=== PATIENT | male | born 1975 | race Two or more races ===

== ENCOUNTER 2024-05-16 01:31 | Inpatient (IN) | payer BC, OTHER ==
[~2024-05-16] VITALS: Ht 172.7 cm; Wt 105.7 kg
[2024-05-16] MEDS ORDERED: Z GUARD REMEDY 4 OZ OINT TP PRN (03:30)
[2024-05-16] MEDS ORDERED: MAGNESIUM HYDROXIDE 30 ML UDC PO PRN (03:30)
[2024-05-16] MEDS ORDERED: MAG HYDROX/AL HYDROX/SIMETH 30 ML UDC PO PRN (03:30)
[2024-05-16] MEDS ORDERED: ACETAMINOPHEN 325 MG TABLET PO PRN (03:30)
[2024-05-16] MEDS ORDERED: LORAZEPAM INJ 2 MG/ML VIAL IV PRN ×2 (03:30→18:00)
[2024-05-16] MEDS ORDERED: ONDANSETRON HCL/PF 4 MG/2 ML VIAL IVP PRN (03:30)
[2024-05-16 04:00] VITALS: BP 129/82; TEMP 97.9
[2024-05-16] MEDS: ENOXAPARIN SODIUM 30 MG/0.3 ML DISP.SYRIN SQ SCH (04:43)
[2024-05-16 07:10] LABS: BASOPHILS % (AUTO) 0.4 % (0.0-2.0); EOSINOPHILS % (AUTO) 0.1 % (0.0-6.0); HEMATOCRIT 47 % (39-51); HEMOGLOBIN 16.1 g/dL (13.5-17.5); LYMPHOCYTES # (AUTO) 1.8 K/uL (0.8-4.8); LYMPHOCYTES % (AUTO) 29.6 % (20.0-44.0); MEAN CORPUSCULAR HEMOGLOBIN 31 PG (26.0-33.0); MEAN CORPUSCULAR HGB CONC 35 g/dl (31.0-36.0); MEAN CORPUSCULAR VOLUME 88 fL (80-96); MONOCYTES # (AUTO) 0.4 K/uL (0.1-1.30); MONOCYTES % (AUTO) 6.2 % (2.0-12.0); NEUTROPHILS % (AUTO) 63.7 % (43.0-81.0); PLATELET COUNT (AUTO) 188 K/uL (150-450); RED BLOOD CELL COUNT(AUTO) 5.28 MIL/uL (4.5-6.0); WHITE BLOOD COUNT (AUTO) 6.2 K/uL (4.3-11.0)
[2024-05-16 07:28] LABS: ALBUMIN 4.1 g/dL (3.4-5.0); BILIRUBIN,DIRECT 0.2 mg/dL (0.0-0.2); BILIRUBIN,TOTAL 1.2 mg/dL (0.2-1.0); CALCIUM, SERUM 8.6 mg/dL (8.5-10.1); CREATININE 1.2 mg/dL (0.6-1.3); POTASSIUM 3.7 mmol/L (3.5-5.1); TOTAL PROTEIN, SERUM 7.1 g/dL (6.4-8.2)
[2024-05-16 08:00] VITALS: BP 116/77; TEMP 98.4
[2024-05-16] MEDS ORDERED: LAMO25TA10 PO (08:18)
[2024-05-16] MEDS ORDERED: SERT25TA PO (08:18)
[2024-05-16] MEDS ORDERED: BUSP5TAB3 PO (08:18)
[2024-05-16] MEDS ORDERED: ATOR40TA PO (08:18)
[2024-05-16] MEDS ORDERED: ZONI100C31 PO (08:18)
[2024-05-16] MEDS ORDERED: METF-440 PO (08:18)
[2024-05-16] MEDS ORDERED: LINA5TAB PO (08:18)
[2024-05-16] MEDS ORDERED: METO-357 PO (08:18)
[2024-05-16] MEDS ORDERED: ASPI-1420 PO (08:18)
[2024-05-16] MEDS ORDERED: FLUT16SP BNOSTRILS (08:18)
[2024-05-16] MEDS ORDERED: BENA1TAB18 PO (08:18)
[2024-05-16] MEDS: LEVETIRACETAM (500MG) 1,000 MG in IV NS 0.9% 90 ML IV SCH (09:17)
[2024-05-16 09:44] LABS: CHOLESTEROL 172 mg/dL (<200); HDL CHOLESTEROL 37 mg/dL (40-60); LDL 105 mg/dL (0-99); TRIGLYCERIDES 125 mg/dL (30-150)
[2024-05-16] MEDS ORDERED: CT SWABBABLE VALVE TRANS SET 1 EA INFUS.SET MC ONE (11:38)
[2024-05-16] MEDS ORDERED: IV NS 0.9% 250 ML IV ONE (11:38)
[2024-05-16] MEDS ORDERED: IOHEXOL-350 100 ML VIAL IV ONE (11:38)
[2024-05-16] MEDS: METOPROLOL TARTRATE INJ 5 MG/5 ML AMPUL IVP PRN (11:40)
[2024-05-16] MEDS ORDERED: METOPROLOL TARTRATE INJ 5 MG/5 ML AMPUL ONE ×2 (11:41→11:42)
[2024-05-16] MEDS ORDERED: NITROGLYCERIN 0.4 MG/TAB BOTTLE ONE (11:41)
[2024-05-16 12:00] VITALS: BP 116/77; TEMP 98.4
[2024-05-16] MEDS: NITROGLYCERIN 0.4 MG/TAB BOTTLE SL ONE (12:07)
[2024-05-16] MEDS ORDERED: FLUTICASONE PROPIONATE 16 GM BOTTLE NS PRN (13:00)
[2024-05-16] MEDS: busPIRone 5 MG TABLET PO SCH (13:25)
[2024-05-16 16:00] VITALS: BP 118/87; TEMP 98
[2024-05-16] MEDS ORDERED: LamoTRIgine 25 MG TABLET PO SCH (17:00)
[2024-05-16] MEDS: BENAZEPRIL HCL 20 MG TABLET PO SCH (17:46)
[2024-05-16] MEDS: HYDROCHLOROTHIAZIDE 25 MG TABLET PO SCH (17:47)
[2024-05-16] MEDS: LamoTRIgine 25 MG TABLET PO SCH (17:49)
[2024-05-16] MEDS ORDERED: DEXTROSE 50%-WATER 50 ML DISP.SYRIN IV PRN (18:00)
[2024-05-16 20:00] VITALS: BP 122/86; TEMP 97.5; O2SAT 96
[2024-05-16] MEDS: ATORVASTATIN 40 MG TABLET PO SCH (22:35)
[2024-05-16] MEDS: BLOOD SUGAR DIAGNOSTIC 1 EACH STRIP IN SCH (22:43)
[2024-05-16] MEDS: INSULIN REGULAR, HUMAN 100 UNIT/ML 3 ML VIAL SQ PRN (22:44)
[2024-05-17] VITALS: BP 107/83; TEMP 97.3; O2SAT 96
[2024-05-17 04:00] VITALS: BP 103/71; TEMP 97.3; O2SAT 99
[2024-05-17 06:36] LABS: BASOPHILS % (AUTO) 0.3 % (0.0-2.0); HEMATOCRIT 44 % (39-51); HEMOGLOBIN 15.3 g/dL (13.5-17.5); LYMPHOCYTES # (AUTO) 1.8 K/uL (0.8-4.8); LYMPHOCYTES % (AUTO) 29.9 % (20.0-44.0); MEAN CORPUSCULAR HEMOGLOBIN 30 PG (26.0-33.0); MEAN CORPUSCULAR HGB CONC 35 g/dl (31.0-36.0); MEAN CORPUSCULAR VOLUME 88 fL (80-96); MONOCYTES # (AUTO) 0.4 K/uL (0.1-1.30); MONOCYTES % (AUTO) 6.6 % (2.0-12.0); NEUTROPHILS # (AUTO) 3.7 K/uL (1.8-8.9); NEUTROPHILS % (AUTO) 63.2 % (43.0-81.0); PLATELET COUNT (AUTO) 171 K/uL (150-450); RED BLOOD CELL COUNT(AUTO) 5.06 MIL/uL (4.5-6.0); RED CELL DISTRIBUTION WIDTH 13.7 % (11.5-15.0); WHITE BLOOD COUNT (AUTO) 5.9 K/uL (4.3-11.0)
[2024-05-17 07:19] LABS: CALCIUM, SERUM 8.8 mg/dL (8.5-10.1); MAGNESIUM 2.1 mg/dL (1.8-2.4); PHOSPHORUS 4.2 mg/dL (2.5-4.9)
[2024-05-17 08:00] VITALS: BP_SYST 114; BP_SYST 136; BP_DIAS 66; BP_DIAS 77; TEMP 97.9; TEMP 98.6; O2SAT 96; O2SAT 98
[2024-05-17] MEDS: LINAGLIPTIN 5 MG TABLET PO SCH (08:39)
[2024-05-17] MEDS: SERTRALINE HCL 25 MG TABLET PO SCH (08:39)
[2024-05-17] MEDS: ASPIRIN EC 81 MG TABLET.DR PO SCH (08:40)
[2024-05-17] MEDS: POTASSIUM CHLORIDE 20 MEQ TAB.PRT.SR PO SCH (09:42)
[2024-05-17 12:00] VITALS: BP 109/82; TEMP 97.7; O2SAT 95
[2024-05-17] MEDS ORDERED: LEVE1000 PO (14:09)
[2024-05-17] MEDS ORDERED: LAMO25TA5 PO (14:09)
[2024-05-17] MEDS ORDERED: LINA5TAB PO (14:09)
[2024-05-17] MEDS ORDERED: HYDR25TA4 PO (14:09)
[2024-05-17] MEDS ORDERED: SERT25TA5 PO (14:09)
[2024-05-17] MEDS ORDERED: SERTRALINE HCL 25 MG TABLET PO SCH (17:00)
== END 2024-05-17 15:15 | disposition home or self-care (01) | DRG 101 ==
LOC: MEDSG1 01:31 → TELE1 05:21
PROVIDERS: ATTEND Nurse Practitioner Acute Care
DX: G40.909 Epilepsy, unspecified, not intractable, without status epilepticus (principal); F33.1 Major depressive disorder, recurrent, moderate; G80.2 Spastic hemiplegic cerebral palsy; Z98.890 Other specified postprocedural states; I25.10 Atherosclerotic heart disease of native coronary artery without angina pectoris; E11.9 Type 2 diabetes mellitus without complications; Z79.82 Long term (current) use of aspirin; Z79.51 Long term (current) use of inhaled steroids; Z79.899 Other long term (current) drug therapy; Z79.84 Long term (current) use of oral hypoglycemic drugs; F41.9 Anxiety disorder, unspecified; E87.6 Hypokalemia; Z86.12 Personal history of poliomyelitis; I10 Essential (primary) hypertension; E66.9 Obesity, unspecified; Z68.35 Body mass index [BMI] 35.0-35.9, adult; Z56.0 Unemployment, unspecified; Z63.5 Disruption of family by separation and divorce; Z88.0 Allergy status to penicillin; Z91.148 Patient's other noncompliance with medication regimen for other reason
CPT/HCPCS: 36415; 70450-TC; 75574; 80048-TC; 80061-TC; 80076-TC; 82607-TC; 82962-TC; 83735-TC; 83921; 84100-TC; 84425; 84439-TC; 84443-TC; 84484-TC; 85025-TC; 93307-TC; 93880-TC; 97112-TC; 97116-TC; 97530-TC; G0378; J1650; J1815; J1953; J3490; J7030; J7050; Q9967